=== PATIENT | male | born 1990 | race African-American/Black ===

== ENCOUNTER 2022-03-16 13:37 | Emergency (ER) | payer OTHER ==
[~2022-03-16] VITALS: Ht 182.9 cm; Wt 91.4 kg
[2022-03-16 13:38] VITALS: BP 141/74
[2022-03-16] MEDS ORDERED: ACETAMINOPHEN 500 MG TAB PO ONE (18:00)
[2022-03-16] MEDS ORDERED: BENZONATATE 100MG CAPSULE PO ONE (18:00)
== END 2022-03-16 18:19 | disposition left against medical advice (07) ==
LOC: M ED 17:34
DX: U07.1 COVID-19 (principal); J06.9 Acute upper respiratory infection, unspecified; Z20.822 Contact with and (suspected) exposure to COVID-19; Z53.21 Procedure and treatment not carried out due to patient leaving prior to being seen by health care provider

== ENCOUNTER → 2023-01-17 | Outpatient (CLI) | payer OTHER | LOC: M RAD 12:43 | PROVIDERS: ATTEND Internal Medicine Cardiovascular Disease | DX: R07.9 Chest pain, unspecified (principal) ==

== ENCOUNTER → 2023-07-31 | Outpatient (CLI) | payer OTHER | LOC: M CARPUL 10:32 | PROVIDERS: ATTEND Physician Assistant | DX: R06.09 Other forms of dyspnea (principal) ==

== ENCOUNTER → 2024-01-11 | Outpatient (REF) | LOC: M PLAIMG 07:35 | PROVIDERS: ATTEND Internal Medicine | DX: R06.02 Shortness of breath (principal) ==